=== PATIENT | female | born 1995 | race Two or more races ===

== ENCOUNTER 2017-05-30 04:32 | Outpatient (CLI) | payer OTHER ==
[~2017-05-30] VITALS: Ht 167.6 cm; Wt 81.0 kg
[2017-05-30 04:44] VITALS: BP 137/90
[2017-05-31] MEDS ORDERED: ZYRT10CA PO (01:28)
[2017-05-31] MEDS ORDERED: ADV250INH INH (01:28)
[2017-05-31] MEDS ORDERED: PRENTAB9 PO (01:28)
[2017-05-31] MEDS ORDERED: ALBU83IN INH (01:28)
== END 2017-05-30 05:45 | disposition home or self-care (01) ==
LOC: M LDO 04:32
PROVIDERS: ATTEND Student in an Organized Health Care Education/Training Program
DX: O47.1 False labor at or after 37 completed weeks of gestation (principal); O99.53 Diseases of the respiratory system complicating the puerperium; Z87.440 Personal history of urinary (tract) infections; Z3A.40 40 weeks gestation of pregnancy

== ENCOUNTER 2017-05-31 01:06 | Inpatient (IN) | payer OTHER ==
[2017-05-31] VITALS (15 sets, daily range): BP systolic 117–137; BP diastolic 57–81
[~2017-05-31] VITALS: Ht 167.6 cm; Wt 81.0 kg
[2017-05-31] MEDS ORDERED: PRENTAB9 PO (01:28)
[2017-05-31] MEDS ORDERED: ALBU83IN INH (01:28)
[2017-05-31] MEDS ORDERED: ZYRT10CA PO (01:28)
[2017-05-31] MEDS ORDERED: ADV250INH INH (01:28)
[2017-05-31] MEDS ORDERED: LR 1,000 ML IV SCH ×2 (01:50→12:15)
[2017-05-31 02:22] LABS: MEAN CORPUSCULAR HEMOGLOBIN 30.2 pg (27.0-33.0); MEAN CORPUSCULAR HGB CONC 33.6 g/dl (32.0-36.5); MEAN CORPUSCULAR VOLUME 89.6 fl (80.0-96.0); RED CELL DISTRIBUTION WIDTH 14.3 % (11.5-14.5); WHITE BLOOD COUNT 17.6 K/mm3 (4.0-10.0)
[2017-05-31] MEDS ORDERED: FENTANYL 2MCG/ML ROPIVACAINE 0.2% IN 0.9% NACL 200ML IVBAG As Ordered ONE (02:35)
[2017-05-31] MEDS ORDERED: EPIDURAL/PCA KEYS XX PRN (03:30)
[2017-05-31] MEDS ORDERED: ePHEDrine SULFATE 25 MG/5 ML(5MG/ML) SYRINGE IV PRN (03:30)
[2017-05-31] MEDS ORDERED: REFRIGERATOR IV KEYS XX PRN (03:30)
[2017-05-31] MEDS ORDERED: FENTANYL/ROPIVACAINE/NACL BAG 200 ML EPIDURAL SCH (03:30)
[2017-05-31] MEDS ORDERED: EPIDURAL COMMENT XX SCH (03:30)
[2017-05-31] MEDS ORDERED: diphenhydrAMINE INJ 50MG/ML VIAL (J1200) IV PRN (03:30)
[2017-05-31] MEDS ORDERED: LACTATED RINGER'S 1000 ML IV PRN (03:30)
[2017-05-31] MEDS ORDERED: NALOXONE INJ 0.4 MG/1 ML VIAL (J2310) IV PRN ×3 (03:30→11:36)
[2017-05-31] MEDS ORDERED: ONDANSETRON 4MG/2ML VIAL (J2405) IV PRN ×4 (03:30→12:15)
[2017-05-31] MEDS ORDERED: OXYTOCIN 30 UNITS IN 0.9% NaCl 500ML IV BAG (J2590) As Ordered ONE (07:12)
[2017-05-31] MEDS: DOCUSATE SODIUM 100 MG CAP PO SCH ×2 (09:00→20:28)
[2017-05-31] MEDS: PRENATAL VITAMINS CHEWABLE TABLET PO SCH (09:00)
[2017-05-31] MEDS ORDERED: OXYTOCIN DRIP 30 UNITS in APPROPRIATE DILUENT 1 EA IV SCH (10:00)
[2017-05-31] MEDS ORDERED: BICITRA 30ML SOLN UDC PO ONE (10:30)
[2017-05-31] MEDS ORDERED: AZITHROMYCIN INJ 500 MG, VIAL MATE ADAPTER 1 EACH in D5W 250 ML IV ONE (10:30)
[2017-05-31] MEDS ORDERED: LIDOCAINE PRES-FREE 2% 10ML AMP As Ordered ONE (10:32)
[2017-05-31] MEDS ORDERED: OXYTOCIN INJ 10 UNITS/ML VIAL (J2590) As Ordered ONE (10:32)
[2017-05-31] MEDS ORDERED: fentaNYL 100 MCG/2 ML INJECTION (J3010) As Ordered ONE (11:16)
[2017-05-31] MEDS ORDERED: ONDANSETRON 4MG/2ML VIAL (J2405) As Ordered ONE (11:26)
[2017-05-31] MEDS ORDERED: KETOROLAC 60 MG/2 ML VIAL (J1885) As Ordered ONE (11:26)
[2017-05-31] MEDS ORDERED: LIDOCAINE 2% W/EPIN INJ 20ML **PRES FREE As Ordered ONE (11:29)
[2017-05-31] MEDS ORDERED: MORPHINE PRES-FREE INJ 10 MG/10 ML VIAL (J2274) As Ordered ONE (11:32)
[2017-05-31] MEDS ORDERED: METOCLOPRAMIDE INJ 10MG/2ML VIAL (J2765) IV PRN ×2 (11:36→12:15)
[2017-05-31] MEDS ORDERED: NALBUPHINE HCL 10 MG/ML AMP (J2300) IV PRN (11:36)
[2017-05-31 11:59] LABS: CORD GAS ABE A -5.7; CORD GAS ABE V -5.2; CORD GAS HCO3 A 23.7 MEQ/L; CORD GAS HCO3 V 21.9 MEQ/L; CORD GAS O2 SAT A 51.4 %; CORD GAS O2 SAT V 54.2 %; CORD GAS PCO2 A 63.6 mmHg; CORD GAS PCO2 V 48.1 mmHg; CORD GAS PH A 7.19 UNITS; CORD GAS PH V 7.276 UNITS; CORD GAS PO2 V 27.5 mmHg; CORD GAS SBC A 18.8 MEQ/L; CORD GAS SBC V 19.2 MEQ/L; CORD GAS TCO2 A 25.7 MEQ/L; CORD GAS TCO2 V 23.4 MEQ/L
[2017-05-31] MEDS ORDERED: METHYLERGONOVINE MALEATE 0.2 MG/ML VIAL (J2210) IM PRN (12:00)
[2017-05-31] MEDS ORDERED: PERCOCET 5MG/325MG TAB PO PRN ×2 (12:00→12:15)
[2017-05-31] MEDS ORDERED: RHOGAM 300 MCG (1500 IU) INJ (J2790) IM SCH (12:00)
[2017-05-31] MEDS ORDERED: PROMETHAZINE 25 MG TAB PO PRN (12:00)
[2017-05-31] MEDS ORDERED: MEASLES,MUMPS,RUBELLA VACCINE INJ (MMR-II) (90707) SC SCH (12:00)
[2017-05-31] MEDS ORDERED: fentaNYL 100 MCG/2 ML INJECTION (J3010) IV PRN (12:15)
[2017-05-31] MEDS: KETOROLAC 30 MG/ML VIAL (J1885) IV SCH (18:10)
[2017-05-31] MEDS: LR 1,000 ML IV SCH ×2 (18:57→19:57)
[2017-06-01] MEDS: KETOROLAC 30 MG/ML VIAL (J1885) IV SCH ×3 (00:24→15:05)
[2017-06-01 01:40] VITALS: BP 131/77
[2017-06-01] MEDS: LR 1,000 ML IV SCH (02:43)
[2017-06-01 06:12] VITALS: BP 134/83
[2017-06-01 06:43] LABS: MEAN CORPUSCULAR HEMOGLOBIN 30.9 pg (27.0-33.0); MEAN CORPUSCULAR HGB CONC 34.5 g/dl (32.0-36.5); MEAN CORPUSCULAR VOLUME 89.5 fl (80.0-96.0); RED CELL DISTRIBUTION WIDTH 14.6 % (11.5-14.5); WHITE BLOOD COUNT 16.1 K/mm3 (4.0-10.0)
[2017-06-01] MEDS: PERCOCET 5MG/325MG TAB PO PRN (09:30)
[2017-06-01] MEDS: DOCUSATE SODIUM 100 MG CAP PO SCH ×2 (09:30→20:07)
[2017-06-01] MEDS: PRENATAL VITAMINS CHEWABLE TABLET PO SCH (09:30)
[2017-06-01 10:00] VITALS: BP 134/73
[2017-06-01 14:00] VITALS: BP 127/72
[2017-06-01 16:10] VITALS: BP 126/78
[2017-06-01] MEDS: IBUPROFEN 800 MG TAB PO SCH (20:08)
[2017-06-01 22:21] VITALS: BP 129/82
[2017-06-02] MEDS: IBUPROFEN 800 MG TAB PO SCH (04:11)
[2017-06-02 06:26] VITALS: BP 131/84
[2017-06-02] MEDS: DOCUSATE SODIUM 100 MG CAP PO SCH (08:51)
[2017-06-02] MEDS: PRENATAL VITAMINS CHEWABLE TABLET PO SCH (08:51)
[2017-06-02] MEDS: PERCOCET 5MG/325MG TAB PO PRN (08:52)
[2017-06-02] MEDS ORDERED: COLA100C5 PO (12:49)
[2017-06-02] MEDS ORDERED: PRENTAB9 PO (12:50)
[2017-06-02] MEDS ORDERED: IBUP-1114 PO (12:53)
[2017-06-02] MEDS ORDERED: OXYC1TAB23 PO (12:54)
[2017-06-02] MEDS ORDERED: HYDROCORTISONE 1% CREAM 30 GM TOP ONE (13:00)
== END 2017-06-02 14:30 | disposition home or self-care (01) | DRG 766 ==
LOC: M LDO 01:06 → M LDI 01:48 → M OBS 13:28
PROVIDERS: ADMIT Advanced Practice Midwife; ATTEND Obstetrics & Gynecology
PROC: 10D00Z1 Extraction of Products of Conception, Low, Open Approach (ICD-10-PCS; principal; 2017-05-31 10:47)
DX: O99.52 Diseases of the respiratory system complicating childbirth (principal); J45.909 Unspecified asthma, uncomplicated; O77.0 Labor and delivery complicated by meconium in amniotic fluid; Z3A.40 40 weeks gestation of pregnancy; O48.0 Post-term pregnancy; O62.0 Primary inadequate contractions; Z37.0 Single live birth